=== PATIENT | male | born 1950 | race Caucasian/White ===

== ENCOUNTER → 2017-03-02 | Outpatient (CLI) | payer BC ==
[~2017-03-02] MED LIST: HYDR-3240 PO; LISI1TAB3 PO; RIVA20TA PO
== END | disposition home or self-care (01) ==
LOC: CFH 12:27
PROVIDERS: ATTEND Internal Medicine Cardiovascular Disease
DX: I10 Essential (primary) hypertension (principal); R94.31 Abnormal electrocardiogram [ECG] [EKG]; R06.02 Shortness of breath
CPT/HCPCS: 78452; 93017; 93306; A9502

== ENCOUNTER 2018-05-26 17:26 | Emergency (ER) | payer BC ==
[~2018-05-26] VITALS: Ht 180.3 cm; Wt 88.3 kg
[2018-05-26 17:31] VITALS: BP 137/77
[2018-05-26] MEDS ORDERED: ATOR10TA9 PO (17:45)
[2018-05-26] MEDS ORDERED: ALBUTEROL/IPRATROPIUM 2.5MG/0.5MG, 3 ML ONE (17:50)
[2018-05-26] MEDS ORDERED: ALBUTEROL/IPRATROPIUM 2.5MG/0.5MG, 3 ML NPPB ONE (18:00)
== END 2018-05-26 18:39 | disposition home or self-care (01) ==
LOC: ED 18:31
DX: J15.9 Unspecified bacterial pneumonia (principal); I10 Essential (primary) hypertension; Z87.891 Personal history of nicotine dependence
CPT/HCPCS: 71046; 94640; 99284; J7620

== ENCOUNTER → 2018-11-12 | Outpatient (CLI) | payer BC ==
[~2018-11-12] MED LIST changes: +ATOR10TA9 PO
== END | disposition home or self-care (01) ==
LOC: CFH 07:58
PROVIDERS: ATTEND Internal Medicine Geriatric Medicine
DX: K80.20 Calculus of gallbladder without cholecystitis without obstruction (principal); D73.89 Other diseases of spleen; K74.60 Unspecified cirrhosis of liver
CPT/HCPCS: 76700

== ENCOUNTER 2019-06-30 11:03 | Inpatient (IN) | payer BC, MEDICARE ==
[~2019-06-30] VITALS: Ht 177.8 cm; Wt 83.0 kg
[~2019-06-30 11:03] MED LIST changes: +LISI1TAB23 PO; -LISI1TAB3 PO
[2019-06-30] MEDS ORDERED: XARELTO (11:25)
[2019-06-30] MEDS ORDERED: LISINOPRIL (11:25)
--- NOTE | 2019-06-30 11:41 | NUR ---
PT TO ED FOR CARDIAC WORKUP. PT WAS SEEN ON SUNDAY AND LEFT AMA AFTER ADMIT RECOMMENDATION FOR ELEVATED TROP. PT STATES HE NOW HAS TIME TO BE ADMITTED FOR WORKUP. PT CONNECTED TO ALL MONITORS. VSS. ORDERS RECEIVED. IV ESTABLISHED AND LABS DRAWN. EKG COMPLETE. XR TO BS. AWAITING RESUTLS.
--- NOTE | 2019-06-30 11:59 | NUR ---
DR. REY TO BS FOR ASSESSMENT.
[2019-06-30 12:07] LABS: ALBUMIN 3.9 g/dL (3.4-5.0); ANION GAP 6 mmol/L (5-15); CALCIUM 8.7 mg/dL (8.5-10.1); CHLORIDE 109 mmol/L (98-107)
[2019-06-30 12:09] LABS: BASOPHILS # (AUTO) 0.02 x10^3/uL (0-0.1); BASOPHILS % (AUTO) 0 % (0-1); EOSINOPHILS # (AUTO) 0.14 x10^3/uL (0-0.4); EOSINOPHILS % (AUTO) 2 % (1-7); LYMPHOCYTES # (AUTO) 1.72 x10^3/uL (1-3.4); LYMPHOCYTES % (AUTO) 25 % (22-44); MD NO; MEAN CORPUSCULAR HGB CONC 34.4 g/dL (33.2-36.2); MEAN CORPUSCULAR VOLUME 87.2 fL (81-97); MEAN PLATELET VOLUME 7.2 fL (7.4-10.4); MONOCYTES # (AUTO) 0.64 x10^3/uL (0.2-0.8); MONOCYTES % (AUTO) 10 % (2-9); NEUTROPHILS # (AUTO) 4.25 x10^3/uL (1.8-6.8); NEUTROPHILS % (AUTO) 63 % (42-75); PLATELET COUNT 142 x10^3/uL (130-400); RED CELL DISTRIBUTION WIDTH 13.9 % (9.4-14.8)
[2019-06-30 12:13] LABS: ALANINE AMINOTRANSFERASE 15 U/L (12-78); ALKALINE PHOSPHATASE 66 U/L (45-117); BILIRUBIN,TOTAL 0.6 mg/dL (0.2-1.0); CREATININE 1.77 mg/dL (0.7-1.3); TOTAL PROTEIN 7.1 g/dL (6.4-8.2)
[2019-06-30 12:18] LABS: TROPONIN I 0.273 ng/mL (0.000-0.045)
--- NOTE | 2019-06-30 12:38 | NUR ---
PT RESTING IN ROOM. VSS. NO NEEDS EXPRESSED. CALL LIGHT WIHIN REACH. ALL RESULTS BACK AT THIS TIME. CHART UP FOR RECHECK.
--- NOTE | 2019-06-30 13:33 | NUR ---
PT RESTING IN ROOM. VSS. NO NEEDS EXPRESSED. CALL LIGHT WIHIN REACH. ADMIT ORDERS RECEIVED. AWAITING ROOM ASSIGNMENT.
--- NOTE | 2019-06-30 14:35 | NUR ---
pt resting in room. vss. water provided per request. no other needs at this time. admit orders received. awaiting room assignment.
--- NOTE | 2019-06-30 15:44 | NUR ---
pt resting in room. vss. no needs at this time. call light within reach. admit orders received. awaiting room assignment.
--- NOTE | 2019-06-30 17:38 | NUR ---
pt resting in room. vss. no needs at this time. call light within reach. admit orders received. awaiting room assignment. room assignment received. attempted to call report at [phone]. will attempt again.
[2019-06-30 18:45] VITALS: BP 131/90
[2019-06-30 21:28] VITALS: BP 131/90
[2019-07-01] MEDS ORDERED: BENZONATATE 100 MG CAPSULE PO PRN ×2 (00:30)
[2019-07-01 01:27] VITALS: BP 117/74
[2019-07-01 07:37] VITALS: BP 116/73
[2019-07-01 07:50] LABS: BASOPHILS # (AUTO) 0.01 x10^3/uL (0-0.1); BASOPHILS % (AUTO) 0 % (0-1); EOSINOPHILS # (AUTO) 0.13 x10^3/uL (0-0.4); EOSINOPHILS % (AUTO) 2 % (1-7); LYMPHOCYTES % (AUTO) 21 % (22-44); MD NO; MEAN CORPUSCULAR HEMOGLOBIN 30.4 pg (27.5-34.5); MEAN CORPUSCULAR HGB CONC 34.7 g/dL (33.2-36.2); MEAN CORPUSCULAR VOLUME 87.6 fL (81-97); MEAN PLATELET VOLUME 6.8 fL (7.4-10.4); MONOCYTES # (AUTO) 0.53 x10^3/uL (0.2-0.8); MONOCYTES % (AUTO) 8 % (2-9); NEUTROPHILS # (AUTO) 4.72 x10^3/uL (1.8-6.8); NEUTROPHILS % (AUTO) 70 % (42-75); PLATELET COUNT 139 x10^3/uL (130-400); RED BLOOD COUNT 4.65 x10^6/uL (4.38-5.82)
[2019-07-01] MEDS ORDERED: D5%-0.45NACL+KCL 20MEQ 1,000 ML IV SCH (07:52)
[2019-07-01 07:54] LABS: ALANINE AMINOTRANSFERASE 15 U/L (12-78); ALBUMIN 3.8 g/dL (3.4-5.0); ANION GAP 4 mmol/L (5-15); CALCIUM 8.6 mg/dL (8.5-10.1); CHLORIDE 112 mmol/L (98-107)
[2019-07-01 07:58] LABS: ALKALINE PHOSPHATASE 63 U/L (45-117); BILIRUBIN,TOTAL 0.8 mg/dL (0.2-1.0); TOTAL PROTEIN 6.9 g/dL (6.4-8.2); TROPONIN I 0.175 ng/mL (0.000-0.045)
[2019-07-01] MEDS ORDERED: GUAIFENESIN/DM 200-20MG, 10ML UDC PO PRN (08:00)
[2019-07-01] MEDS ORDERED: POLYETHYLENE GLYCOL 17 GM PACKET PO PRN (08:00)
[2019-07-01] MEDS ORDERED: hydrALAzine 20 MG/ML, 1ML IVPush PRN (08:00)
[2019-07-01] MEDS ORDERED: ONDANSETRON 2MG/ML, 2ML IVPush PRN (08:00)
[2019-07-01] MEDS ORDERED: ONDANSETRON ODT 4 MG PO PRN (08:00)
[2019-07-01] MEDS ORDERED: RIVAROXABAN 20 MG TABLET PO SCH (08:30)
[2019-07-01] MEDS ORDERED: REGADENOSON 0.4 MG/5 ML SYRINGE ONE (10:46)
[2019-07-01 12:39] VITALS: BP 137/78
[2019-07-01] MEDS ORDERED: RIVA20TA PO (13:35)
[2019-07-01] MEDS ORDERED: LISI-170 PO (13:43)
== END 2019-07-01 15:10 | disposition home or self-care (01) | DRG 684 ==
LOC: ED 13:29 → EDIP 13:30 → ED 13:37 → 5SO 18:33 → DCLOUNGE 07-01 15:00
PROVIDERS: ADMIT Internal Medicine; ATTEND Internal Medicine
DX: N17.9 Acute kidney failure, unspecified (principal); I12.9 Hypertensive chronic kidney disease with stage 1 through stage 4 chronic kidney disease, or unspecified chronic kidney disease; K74.60 Unspecified cirrhosis of liver; N18.9 Chronic kidney disease, unspecified; B19.20 Unspecified viral hepatitis C without hepatic coma; F19.10 Other psychoactive substance abuse, uncomplicated; G89.4 Chronic pain syndrome; I25.2 Old myocardial infarction; Z86.718 Personal history of other venous thrombosis and embolism; Z91.19 Patient's noncompliance with other medical treatment and regimen; Z79.899 Other long term (current) drug therapy
CPT/HCPCS: 36415; 71045; 78452; 80053; 83735; 83880; 84484; 85025; 93005; 93017; G0378; J2785; A9502; J3480

== ENCOUNTER 2020-04-25 20:31 | Emergency (ER) | payer BC, MEDICARE, OTHER ==
[~2020-04-25] VITALS: Ht 177.8 cm; Wt 93.7 kg
[~2020-04-25 20:31] MED LIST changes: +LISI-170 PO; +LISINOPRIL; +XARELTO
--- NOTE | 2020-04-25 20:41 | NUR ---
PATIENT AMBULATED BACK TO ROOM
--- NOTE | 2020-04-25 20:42 | NUR ---
PATIENT STATED LAST NIGHT AT 6:45 PM HE HAD A SPLINTER IN HIS RIGHT FOREARM. PT STATES HE PULLED OUT PART OF IT BUT THINKS THERE IS MORE INSIDE. SITE HAS GOTTEN MORE SWOLLEN ACCORDING TO PT. PT IN 2/10 PAIN, [facility]
[2020-04-25] MEDS ORDERED: LIDOCAINE-MPF 1%, 5ML ONE (21:42)
--- NOTE | 2020-04-25 21:45 | NUR ---
ERP AT BEDSIDE
[2020-04-25] MEDS ORDERED: LIDOCAINE-MPF 1%, 5ML INFIL ONE (22:00)
[2020-04-25] MEDS ORDERED: DIPH,PERTUSS(ACELL),TET VAC/PF 0.5 ML IM-VACC ONE ×2 (22:30→22:57)
[2020-04-25 23:26] VITALS: BP 124/56
== END 2020-04-25 23:33 | disposition home or self-care (01) ==
LOC: ED 20:59
DX: S50.851A Superficial foreign body of right forearm, initial encounter (principal); I10 Essential (primary) hypertension; I25.2 Old myocardial infarction; X58.XXXA Exposure to other specified factors, initial encounter; Y93.89 Activity, other specified; Y92.89 Other specified places as the place of occurrence of the external cause; Y99.8 Other external cause status; Z87.891 Personal history of nicotine dependence; Z86.718 Personal history of other venous thrombosis and embolism
CPT/HCPCS: 90471; 90715; 99283